=== PATIENT | female | born 2000 ===

== ENCOUNTER 2023-02-08 09:30 | Emergency (ER) | payer SELFPAY ==
[2023-02-08 09:32] VITALS: BP 118/68; PULSE 107; RESP 18; TEMP 36.4; O2SAT 100
--- NOTE | 2023-02-08 09:37 | ED.EAR ---
HPI - Ear Problem General Chief complaint: Ear Stated complaint: ear pain Time Seen by Provider: 02/08/23 09:34 Source: patient Mode of arrival: ambulatory Limitations: no limitations History of Present Illness HPI Narrative: patient is a pleasant 22 year old female who presents for pain to the right ear. Started this morning. She is 33 weeks . Denies any fever/chills. She states she has had a mild cough recently but nothing intense. denies drainage or outer ear pain. she feels like her ear needs to be popped so she has been trying to. denies any related complaints. Related Data Allergies Allergy/AdvReac Type Severity Reaction Status Date / Time oxycodone Allergy Unknown Verified 02/08/23 10:05 Review of Systems Review of Systems: CONSTITUTIONAL: Denies fever, chills, or sweats. EYES: Denies visual changes, redness, or discharge. ENT: +right ear pain. Denies rhinorrhea, congestion. sore throat before but denies any currently CARDIOVASCULAR: Denies chest pain. RESPIRATORY: Denies current cough or dyspnea. SKIN: Denies rash or itching. NEUROLOGIC: Denies headache All systems reviewed & are unremarkable except as noted in HPI and below Exam Narrative: GENERAL: Well-appearing, well-nourished, and in no acute distress. HEAD: Normocephalic, atraumatic. EYES: PERRLA ENT: Mucous membranes moist. RIGHT EAR: erythematous/retracted TM. no obvious perforation-no external ear tenderness, no drainage or external ear canal swelling. NECK: Supple. CHEST: No respiratory distress. HEART: Regular rate ABDOMEN: gravid. EXTREMITIES: Normal range of motion. No edema. SKIN: Warm, dry, no rash. NEURO: No focal deficits. Alert and oriented x3. PSYCH: Normal mood and affect. Course Vital Signs Vital signs: Vital Signs Temperature 97.6 F 02/08/23 09:32 Pulse Rate 107 H 02/08/23 09:32 Respiratory Rate 18 02/08/23 09:32 Blood Pressure 118/68 02/08/23 09:32 Pulse Oximetry 100 02/08/23 09:32 Oxygen Delivery Room Air 02/08/23 09:32 Temperature 97.6 F 02/08/23 09:32 Pulse Rate 107 H 02/08/23 09:32 Respiratory Rate 18 02/08/23 09:32 Blood Pressure 118/68 02/08/23 09:32 Pulse Oximetry 100 02/08/23 09:32 Oxygen Delivery Room Air 02/08/23 09:32 Medical Decision Making MDM Narrative Medical decision making narrative: presents for right ear pain. Findings consistent with acute otitis media. Will treat with antibiotics. Discussed use of Tylenol for any discomfort. She has no -related complaints. Patient is nontoxic in appearance. Stable re-evaluation exam just before discharge. Patient in no acute distress. Vitals within normal limits. Discussed return precautions with the patient including all the red flag signs or symptoms of when to return the patient. The patient verbalized understanding and was agreeable with discharge and close follow-up Medical Records Medical records reviewed: Yes I reviewed the external patient's medical records. Vital Signs Vital Signs: Vital Signs Temperature 97.6 F 02/08/23 09:32 Pulse Rate 107 H 02/08/23 09:32 Respiratory Rate 18 02/08/23 09:32 Blood Pressure 118/68 02/08/23 09:32 Pulse Oximetry 100 02/08/23 09:32 Oxygen Delivery Room Air 02/08/23 09:32 Temperature 97.6 F 02/08/23 09:32 Pulse Rate 107 H 02/08/23 09:32 Respiratory Rate 18 02/08/23 09:32 Blood Pressure 118/68 02/08/23 09:32 Pulse Oximetry 100 02/08/23 09:32 Oxygen Delivery Room Air 02/08/23 09:32 Lab Data Labs: Lab Results 02/08/23 Range/Units 09:41 Influenza A (RT-PCR) Pending Influenza B (RT-PCR) Pending SARS-CoV-2 RNA (RT-PCR) Pending Discharge Plan Discharge Clinical Impression: Acute otitis media, right, Acute pain of right ear Patient Disposition: Home, Self-Care Condition: Stable Instructions: Antibiotic Form, Ear Infection (ED), Earache (ED) Addition
[2023-02-08 10:20] LABS: Influenza A QL RT-PCR Negative (Negative); Influenza B QL RT-PCR Negative (Negative); SARS-CoV-2 RNA PCR Negative (Negative)
[2023-02-08 10:24] VITALS: BP 120/70; PULSE 102; RESP 18; TEMP 36.7; O2SAT 98
== END 2023-02-08 11:01 | disposition home or self-care (01) ==
PROVIDERS: Emergency Provider Nurse Practitioner
DX: H66.91 Otitis media, unspecified, right ear (principal); Z20.822 Contact with and (suspected) exposure to COVID-19
CPT/HCPCS: 87636; 99283